=== PATIENT | male | born 1985 | race Caucasian/White ===

== ENCOUNTER 2024-09-10 13:16 | Outpatient (CLI) | payer BC | END 2024-09-10 23:59 | disposition home or self-care (01) | LOC: MRI02 13:16 | PROVIDERS: ATTEND Family Medicine Sports Medicine | DX: S46.211A Strain of muscle, fascia and tendon of other parts of biceps, right arm, initial encounter (principal); M25.511 Pain in right shoulder; X58.XXXA Exposure to other specified factors, initial encounter; Y93.89 Activity, other specified; Y92.89 Other specified places as the place of occurrence of the external cause; Y99.8 Other external cause status | CPT/HCPCS: 73218 ==